=== PATIENT | female | born 1980 | race Caucasian/White ===

== ENCOUNTER 2018-12-30 10:38 | Emergency (ER) | payer OTHER | END 2018-12-30 11:35 | disposition home or self-care (01) | LOC: NAV ERS 10:38 | DX: S46.811A Strain of other muscles, fascia and tendons at shoulder and upper arm level, right arm, initial encounter (principal); F31.9 Bipolar disorder, unspecified; X50.1XXA Overexertion from prolonged static or awkward postures, initial encounter | CPT/HCPCS: 99281 ==

== ENCOUNTER 2021-09-03 02:20 | Emergency (ER) | payer SELFPAY | END 2021-09-03 03:46 | disposition home or self-care (01) | LOC: NAV ERS 02:20 | DX: S80.12XA Contusion of left lower leg, initial encounter (principal); F17.210 Nicotine dependence, cigarettes, uncomplicated; Z79.82 Long term (current) use of aspirin; W22.8XXA Striking against or struck by other objects, initial encounter | CPT/HCPCS: 99283 ==